=== PATIENT | male | born 1970 | race Native Hawaiian/Other Pacific Islander ===

== ENCOUNTER 2021-09-23 16:19 | Emergency (ER) | payer OTHER ==
[~2021-09-23] VITALS: Ht 182.9 cm; Wt 65.8 kg
[2021-09-23 17:19] LABS: PLATELET COUNT 240 K/uL (142-355)
[2021-09-23 18:35] VITALS: BP 112/67; TEMP 98.2
== END 2021-09-23 18:35 | disposition home or self-care (01) ==
LOC: ED 16:19
PROVIDERS: Emergency Medicine Emergency Medical Services
DX: L03.113 Cellulitis of right upper limb (principal)
CPT/HCPCS: 36415; 80307; 85027; 87040; 96365; 99284; J3370